=== PATIENT | male | born 1960 | race Caucasian/White ===

== ENCOUNTER 2016-11-23 07:46 | Day surgery (SDC) | payer OTHER ==
[2016-11-21 12:29] VITALS: BMI 39.5
[2016-11-23] MEDS ORDERED: ROPIVACAINE HCL 0.5% 30ML VIAL ONE (08:46)
[2016-11-23] MEDS ORDERED: MIDAZOLAM HCL 2 MG/2 ML SINGLE DOSE VIAL ONE (08:46)
[2016-11-23] MEDS ORDERED: DEXAMETHASONE SOD PHOSPHATE/PF 10 MG/ML SDV ONE (08:46)
[2016-11-23] MEDS ORDERED: BUPIVACAINE HCL/EPINEPHRINE/PF 30 ML VIAL IJ ONE (09:01)
[2016-11-23] MEDS ORDERED: PROPOFOL 20 ML ONE ×2 (09:09)
[2016-11-23] MEDS ORDERED: ceFAZolin SODIUM 1 GM VIAL ONE (09:20)
[2016-11-23] MEDS ORDERED: KETOROLAC TROMETHAMINE 30 MG/1 ML VIAL ONE ×2 (09:44→09:56)
[2016-11-23] MEDS ORDERED: ONDANSETRON 4 MG/2 ML VIAL ONE (09:44)
[2016-11-23] MEDS ORDERED: LIDOCAINE HCL/PF 2% SDV 5ML VIAL ONE (10:05)
[2016-11-23] MEDS ORDERED: oxyCODONE HCL 5 MG TABLET PO PRN (10:09)
[2016-11-23] MEDS ORDERED: oxyCODONE HCL 10 MG SUSTAINED ACTING TABLET PO ONE (10:09)
--- NOTE | 2016-11-23 10:12 | DS ---
Physical Examination Vital Signs: Vital Signs Temperature 98.8 F 11/23/16 08:15 Pulse Rate 75 11/23/16 08:15 Respiratory Rate 18 11/23/16 08:15 Blood Pressure 139/81 11/23/16 08:15 O2 Sat by Pulse Oximetry (%) 97 11/23/16 08:15 Discharge Summary Reason For Visit: PARTIAL THICKNESS ROTATOR CUFF TEAR LEFT SHOULDER Condition: Good - Instructions Diet, Activity, Other Instructions: Post Operative Instructions: Shoulder Arthroscopy Dr Ad Wilhelm 1. Pain following a Shoulder Arthroscopy is variable and can be significant. Some patients will have more pain than others. You have been provided with a prescription for medication that contains a narcotic. You are not allowed to drive while on this medication. You should NOT take Tylenol (Acetaminophen) when taking the pain medication ( it will result in an overdose). Feel free to take medications such as Ibuprofen or Naprosyn in addition to the pain medicine if you do not have any problems with the NSAID class of medications. 2. Apply ice to the shoulder for 15 minutes every hour. You may continue this for as many days as necessary. 3. You may find sleeping on an incline (reclining chair) to be more comfortable for the first few days. 4. You may remove your sling when the arm is comfortable. 5. You may use the arm as tolerated. 6. You may remove the bandages in 48 hours. You may shower at that point. 7. Place band-aids on the sutures after your shower.Do not put any creams or lotions on the incision until after the sutures are removed. 8. Please call the office to schedule a visit to have your sutures removed. 9. If for any reason you believe you may have an infection or are concerned, please feel free to call me. I can be reached through our office number 24 hours a day. 10. Please call our office with any questions; we will review the surgical findings during your post-operative visit. Disposition: HOME - Home Medications Comprehensive Discharge Medication List: Ambulatory Orders Amlodipine Besylate 5 mg PO DAILY 03/28/16 Aspirin [Guy Chewable Aspirin] 81 mg PO DAILY #0 03/28/16 Furosemide [Lasix -] 10 mg PO DAILY PRN 03/28/16 Ibuprofen [Motrin -] 800 mg PO BID 03/28/16 [place]-3 Fatty Acids/Fish Oil [Fish Oil 1,000 mg Softgel] 1 each PO DAILY Oxymorphone HCl [Opana ER] 30 mg PO DAILY 03/28/16 Prednisone 5 mg PO DAILY 03/28/16 Wheat Dextrin [Benefiber] 144 gm PO DAILY #0 powder 03/28/16 Colchicine [Colcrys] 0.6 mg PO DAILY 11/21/16 Metformin HCl 500 mg PO DAILY 11/21/16
--- NOTE | 2016-11-23 10:12 | OP ---
Operative Note - Note: Operative Date: 11/23/16 Pre-Operative Diagnosis: LEft shoulder OA, synovitis, partial cuff tear, labral tear Operation: LSA, synovectomy, debridement, decompression Surgeon: Ad Wilhelm Anesthesiologist/SOLAR ENERGY CONSULTANT AND DESIGNER: Bryan Donohue Anesthesia: General Operative Report Dictated: Yes
--- NOTE | 2016-11-23 10:17 | SURG ---
Surgery Toaster Operator Note Toaster Operator: Jorden Pollack PA-C Date of Service: 11/23/16 Diagnosis: Left shoulder osteoarthritis, synovitis, partial cuff tear, labral tear Procedure: Left shoulder arthroscopy, synovectomy, debridement, decompression I was present for the entirety of the operative procedure. For further detail, please refer to operative report. Visit type - Case Type Case Type: Scheduled Admission - New patient This patient is new to me today: Yes Date on this admission: 11/23/16
[2016-11-23] MEDS ORDERED: LACTATED RINGERS SOLUTION 1,000 ML IV SCH (10:45)
[2016-11-23] MEDS ORDERED: oxyCODONE HCL 5 MG TABLET ONE (11:07)
[2016-11-23] MEDS ORDERED: oxyCODONE HCL 10 MG SUSTAINED ACTING TABLET ONE (11:20)
[2016-11-23 11:28] VITALS: TEMP 98.2
[2016-11-23] MEDS ORDERED: ONDANSETRON 4 MG/2 ML VIAL IVPUSH PRN (11:28)
[2016-11-23 12:15] VITALS: BP 116/76; PULSE 80
--- NOTE | 2016-11-27 13:18 | PATH ---
Surgical Pathology Report Patient Name: FATOU SETIN Med. Rec. #: [id number] /Age/Gender: 1960 (Age: 56) / M Account: [id number] Location: [facility] AMBULATORY Taken: 11/23/2016 Received: 11/23/2016 Reported: 11/27/2016 Physicians: Ad Wilhelm M.D. Specimen(s) Received LEFT SHOULDER SHAVINGS Clinical History Partial-thickness rotator cuff tear left shoulder Final Diagnosis LEFT SHOULDER, ARTHROSCOPIC SHAVINGS: PORTIONS OF FIBROCARTILAGE WITH MYXOID DEGENERATIVE CHANGES, SYNOVIUM, AND HYALINE CARTILAGE. CALCIFIED MATERIAL MORPHOLOGICALLY CONSISTENT WITH PSEUDOGOUT (CPPD) IDENTIFIED. Electronically Signed Evans Leslie M.D. Gross Description Received in formalin, labeled "left shoulder shavings," is a 3.5 x 3.0 x 0.3 cm. aggregate of dorsey-yellow soft tissue fragments. A roofing sales representative portion is submitted in one cassette. 11/26/201611/26/2016
== END 2016-11-23 12:15 | disposition home or self-care (01) ==
LOC: FASU 07:46
PROVIDERS: ATTEND Orthopaedic Surgery
PROC: 0RNK4ZZ Release Left Shoulder Joint, Percutaneous Endoscopic Approach (ICD-10-PCS; 2016-11-23)
PROC: 0RBK4ZZ Excision of Left Shoulder Joint, Percutaneous Endoscopic Approach (ICD-10-PCS; 2016-11-23)
PROC: 0LB24ZZ Excision of Left Shoulder Tendon, Percutaneous Endoscopic Approach (ICD-10-PCS; principal; 2016-11-23 09:37)
DX: M75.112 Incomplete rotator cuff tear or rupture of left shoulder, not specified as traumatic (principal); M75.52 Bursitis of left shoulder; M19.012 Primary osteoarthritis, left shoulder; M65.812 Other synovitis and tenosynovitis, left shoulder; M75.92 Shoulder lesion, unspecified, left shoulder
CPT/HCPCS: 88304-TC; 94760

== ENCOUNTER 2017-12-17 09:54 | Emergency (ER) | payer OTHER ==
[2017-12-17 10:04] VITALS: BP 151/97; PULSE 82; TEMP 98.3; BMI 32.3
--- NOTE | 2017-12-17 10:17 | PDOC ---
History of Present Illness - General Chief Complaint: Injury Stated Complaint: FALL, BACK, CEHST, RT HIP, STANLEY WRISTS Time Seen by Provider: 12/17/17 10:13 History Source: Patient (Patient walked in complaining of a fall while getting through a door at a gas station ) Past History - Past Medical History Allergies/Adverse Reactions: Allergies Allergy/AdvReac Type Severity Reaction Status Date / Time No Known Allergies Allergy Verified 12/17/17 09:55 Home Medications: Ambulatory Orders Amlodipine Besylate 5 mg PO DAILY 03/28/16 Furosemide [Lasix -] 10 mg PO DAILY PRN 03/28/16 [place]-3 Fatty Acids/Fish Oil [Fish Oil 1,000 mg Softgel] 1 each PO DAILY Prednisone 5 mg PO DAILY 03/28/16 Wheat Dextrin [Benefiber] 144 gm PO DAILY #0 powder 03/28/16 Albuterol Sulfate Inhaler - [Ventolin Hfa Inhaler -] 2 inh PO Q4H 10/04/17 Fluticasone Propionate [Flovent Hfa] 110 mcg IH BID 10/04/17 Gabapentin 800 mg PO TID 10/04/17 Multivitamin [Multiple Vitamins] 1 each PO DAILY 10/04/17 Tizanidine HCl 2 mg PO TID 10/04/17 Oxycodone HCl 10 mg PO TID PRN 12/17/17 Anemia: No Asthma: Yes Cancer: No Cardiac Disorders: No CVA: No COPD: No CHF: No Dementia: No Diabetes: No GI Disorders: No Disorders: No HTN: Yes Hypercholesterolemia: No Liver Disease: No Seizures: No Thyroid Disease: No Other medical history: ARTHRITIS, GOUT - Surgical History Abdominal Surgery: Yes (GASTRIC SLEEVE) Appendectomy: Yes Cardiac Surgery: No Cholecystectomy: No Lung Surgery: No Neurologic Surgery: No Orthopedic Surgery: Yes (RT ANKLE ORIF AND REMOVED 1998, left rotator cuff repair 11/30) - Suicide/Smoking/Psychosocial Hx Smoking History: Former smoker Have you smoked in the past 12 months: No If you are a former smoker, when did you quit?: 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 Information on smoking cessation initiated: No Hx Alcohol Use: No Drug/Substance Use Hx: No Substance Use Type: None Hx Substance Use Treatment: No *Physical Exam - Vital Signs Last Vital Signs Temp Pulse Resp BP Pulse Ox 98.3 F 82 18 151/97 96 12/17/17 09:55 12/17/17 09:55 12/17/17 09:55 12/17/17 09:55 12/17/17 09:55 *DC/Admit/Observation/Transfer Diagnosis at time of Disposition: Wrist contusion Qualifiers: Encounter type: initial encounter Laterality: right Qualified Code(s): S60.211A - Contusion of right wrist, initial encounter Shoulder injury Qualifiers: Encounter type: initial encounter Laterality: left Qualified Code(s): S49.92XA - Unspecified injury of left shoulder and upper arm, initial encounter - Discharge Dispostion Condition at time of disposition: Stable Admit: No - Referrals Referrals: Claudia Milligan MD [Primary Care Provider] - - Patient Instructions Printed Discharge Instructions: How to Use a Sling - Post Discharge Activity
[2017-12-17] MEDS ORDERED: ACETAMINOPHEN 500 MG TABLET (FP) PO ONE (11:05)
[2017-12-17] MEDS ORDERED: ACETAMINOPHEN 500 MG TABLET (FP) ONE (11:06)
== END 2017-12-17 12:02 | disposition home or self-care (01) ==
LOC: FER 09:54
DX: S60.211A Contusion of right wrist, initial encounter (principal); S49.92XA Unspecified injury of left shoulder and upper arm, initial encounter; W18.39XA Other fall on same level, initial encounter; Y93.89 Activity, other specified; Y92.9 Unspecified place or not applicable; J45.909 Unspecified asthma, uncomplicated; Z98.84 Bariatric surgery status
CPT/HCPCS: 72100-TC-FY; 73030-TC-LT-FY; 73110-TC-RT-FY; 99283-25

== ENCOUNTER 2018-02-13 08:33 | Emergency (ER) | payer OTHER ==
[2018-02-13 08:42] VITALS: TEMP 97.6; BMI 32.3
--- NOTE | 2018-02-13 09:03 | PDOC ---
History of Present Illness - General Chief Complaint: Overdose Stated Complaint: LIGHTHEADED, RX PROBLEM (PCP SENT) Time Seen by Provider: 02/13/18 09:03 History Source: Patient Exam Limitations: No Limitations - History of Present Illness Initial Comments: 02/13/18 09:15 Pt is a 57 yo with PMHx of HTN, Rh Arthritis and osteoarthritis with previous shoulder surgery, presenting following overdose of lasix this am. Pt was referred by his PCP- Dr Milligan, because he took 10tablets of 20mg lasix accidentally today at 5 am instead of his prednisone tablets for Rh Arthritis. He said he was woken up by his dog this am and felt cramping of his fingers, without turning on the lights or wearing his reading glasses, he mistakenly took 10tablets of the lasix. He takes 5mg prednisone for Rh Arthritis, but was doubling up on a missed dose yesterday, so attempted to take 10mg, before realizing it was the lasix he took. He brought in both medications to the ED today. Pt has passed urine up to 25 times this am, non bloody, no dysuria. Since he came into the ED, he has had cramping of his chest with palpitations, dizziness and blurry vision, but no shortness of breath and no syncope. Patient still took the prednisone 10tablets( 10mg), but skipped his amlodipine (5mg) and the precocet this am. He had a bagel and coffee this am, and has had no nausea or vomiting. Pt has no CAD or CHF but takes the lasix as needed for edema following his prednisone dose. 02/13/18 13:01 Timing/Duration: 4-6 hours Severity: moderate Associated Symptoms: denies: chest pain, cough, diaphoresis, fever/chills, headaches, nausea/vomiting, syncope Past History - Past Medical History Allergies/Adverse Reactions: Allergies Allergy/AdvReac Type Severity Reaction Status Date / Time No Known Allergies Allergy Verified 02/13/18 08:37 Home Medications: Ambulatory Orders Amlodipine Besylate 5 mg PO DAILY 03/28/16 Furosemide [Lasix -] 10 mg PO DAILY PRN 03/28/16 [place]-3 Fatty Acids/Fish Oil [Fish Oil 1,000 mg Softgel] 1 each PO DAILY Prednisone 5 mg PO DAILY 03/28/16 Albuterol Sulfate Inhaler - [Ventolin Hfa Inhaler -] 2 inh PO PRN 10/04/17 Fluticasone Propionate [Flovent Hfa] 110 mcg IH PRN 10/04/17 Gabapentin 800 mg PO QID 10/04/17 Multivitamin [Multiple Vitamins] 1 each PO DAILY 10/04/17 Tizanidine HCl 2 mg PO TID 10/04/17 Oxycodone HCl 10 mg PO TID PRN 12/17/17 Anemia: No Asthma: Yes Cancer: No Cardiac Disorders: No CVA: No COPD: No CHF: No DVT: No Dementia: No Diabetes: No GI Disorders: No Disorders: No HTN: Yes Hypercholesterolemia: No Liver Disease: No Seizures: No Thyroid Disease: No Other medical history: RA, OA - Surgical History Abdominal Surgery: Yes (GASTRIC SLEEVE) Appendectomy: Yes Cardiac Surgery: No Cholecystectomy: No Lung Surgery: No Neurologic Surgery: No Orthopedic Surgery: Yes (RT ANKLE ORIF AND REMOVED 1998, left rotator cuff repair 11/30) - Suicide/Smoking/Psychosocial Hx Smoking History: Former smoker Have you smoked in the past 12 months: No If you are a former smoker, when did you quit?: 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 Information on smoking cessation initiated: No Hx Alcohol Use: No Drug/Substance Use Hx: No Substance Use Type: None Hx Substance Use Treatment: No Review of Systems - Review of Systems Able to Perform ROS?: Yes Is the patient limited Lithuanian proficient: No Constitutional: No: Chills, Diaphoresis, Fever HEENTM: Yes: Blurred Vision. No: Nose Congestion, Throat Pain Respiratory: No: Cough, Orthopnea, Shortness of Breath, SOB at Rest, Stridor, Wheezing Cardiac (ROS): Yes: Lightheadedness, Other (cramping generalized chest pain). No: Chest Pain ABD/GI: No: Abdominal Distended, Constipated, Difficulty Swallowing, Vomiting : Yes: Frequency (since taking the lasix this am). No: Burning, Dysuria, Incontinence Musculoskeletal: Yes: Joint Pain (bilateral digits) Neurological: No: Headache, Numbness, Paresthesia, Seizure, Tingling, Tremors *Physical Exam - Vital Signs Last Vital Signs Temp Pulse Resp BP Pulse Ox 97.6 F 68 18 157/86 100 02/13/18 08:40 02/13/18 08:40 02/13/18 08:40 02/13/18 08:40 02/13/18 08:40 - Physical Exam General Appearance: Yes: Appropriately Dressed HEENT: positive: EOMI, ABIDA. negative: Scleral Icterus (L) Neck: positive: Supple. negative: Tender Respiratory/Chest: positive: Lungs Clear, Normal Breath Sounds. negative: Respiratory Distress Cardiovascular: positive: Regular Rhythm, Regular Rate, S1, S2 Gastrointestinal/Abdominal: positive: Normal Bowel Sounds, Soft. negative: Tender Musculoskeletal: negative: CVA Tenderness Extremity: positive: Normal Inspection, Normal Range of Motion. negative: Tender, Coldness, Cyanosis, Pedal Edema Integumentary: positive: Dry, Warm Neurologic: positive: Fully Oriented, Alert, Motor Strength 5/5. negative: Facial Droop, Numbness, Confused, Disoriented Heart Score/ECG Review - ECG Impressions Comment:: 02/13/18 10:32 Normal sinus rhythm Ventricular rate-63bpm QT/QTc- 402/411 ED Treatment Course - LABORATORY CBC & Chemistry Diagram: 02/13/18 09:25 02/13/18 09:25 Medical Decision Making - Medical Decision Making 02/13/18 09:32 CBC, CMP, Mg, Phosphorus, EKG, lactated ringers 02/13/18 11:02 CBC,CMP wnl EKG- normal Pat, the nurse spoke with poison control and they said to monitor for 6 hours. Plan is to discuss his case with Dr Milligan 02/13/18 12:10 Pending call back from Dr Milligan. Pt was signed out to Dr Oconnor *DC/Admit/Observation/Transfer Diagnosis at time of Disposition: Overdose Qualifiers: Injury intent: accidental or unintentional - Discharge Dispostion Disposition: HOME Condition at time of disposition: Improved Admit: No - Referrals Referrals: Claudia Milligan MD [Primary Care Provider] - 1 week - Patient Instructions Printed Discharge Instructions: DI for Drug Overdose in Adults Additional Instructions: You were seen here for accidentally ingesting 200mg of lasix this morning We checked your blood and did an EKG and everything looked normal We gave you fluids to rehydrate you We observed you up to six hours since the ingestion occurred, as recommended by Poison control and you seem to be stable Please follow up with your primary doctor within 2-3 days Return to the emergency department if you have any new, worsening, or concerning symptoms - Post Discharge Activity - Attestations Physician Attestion: 02/13/18 11:09 Briana Ariza MD
[2018-02-13] MEDS ORDERED: LACTATED RINGERS SOLUTION 1000 ML INFUS.BAG IV ONE ×2 (09:15→09:44)
[2018-02-13 09:32] LABS: BASO % 0.6 % (0-2.0); EOS % 0.4 % (0-4.5); HEMATOCRIT 41.7 % (35.4-49); HEMOGLOBIN 14.4 GM/dL (11.7-16.9); LYMPH % 10.9 % (8-40); MCH 30.1 pg (25.7-33.7); MCHC 34.5 g/dl (32.0-35.9); MEAN CELL VOLUME 87.2 fl (80-96); MEAN PLT VOLUME 8.8 fl (7.5-11.1); MONO % 5.7 % (3.8-10.2); NEUT % 82.4 % (42.8-82.8); PLATELET COUNT 276 K/MM3 (134-434); RBC 4.78 M/mm3 (4.00-5.60); RDW 14.6 % (11.9-15.9); WHITE BLOOD COUNT 9.4 K/mm3 (4.0-10.0)
[2018-02-13 10:00] LABS: ALBUMIN 4.5 g/dl (3.4-5.0); ANION GAP 6 (8-16); BLOOD UREA NITROGEN 20 mg/dL (7-18); CALCIUM 9.4 mg/dL (8.5-10.1); CHLORIDE 101 mmol/L (98-107); CO2 30 mmol/L (21-32); GLUCOSE,RANDOM 118 mg/dL (74-106); POTASSIUM 3.9 mmol/L (3.5-5.1); SODIUM 137 mmol/L (136-145)
[2018-02-13 10:05] LABS: ALK PHOS 78 U/L (45-117); BILIRUBIN,TOTAL 0.6 mg/dL (0.2-1.0); CREATININE 0.9 mg/dL (0.7-1.3); SGOT/AST 21 U/L (15-37); SGPT/ALT 40 U/L (12-78); TOT PROT 8.1 g/dl (6.4-8.2)
[2018-02-13 10:25] LABS: ARTERIAL BLD GAS O2 SATURATION 96.6 % (90-98.9); ARTERIAL BLOOD GAS BASE EXCESS 5.7 meq/l (-2-2); ARTERIAL BLOOD GAS PCO2 38.1 mmHg (35-45); ARTERIAL BLOOD GAS PO2 73.6 mmHg (80-100); ARTERIAL BLOOD GAS pH 7.49 (7.35-7.45)
[2018-02-13 10:26] LABS: ALLENS TEST POSITIVE
[2018-02-13 10:34] LABS: MAGNESIUM 2.2 mg/dL (1.8-2.4); PHOSPHOROUS 3.2 mg/dL (2.5-4.9)
--- NOTE | 2018-02-13 11:10 | PDOC ---
Attending Attestation - [facility] HPI: 02/13/18 11:14 The patient is 57 a year old male, with a significant past medical history of asthma, hypertension, rheumatoid arthritis and osteoarthritis, who presents to the emergency department s/p accidentally taking Lasix 200 mg this morning. He reports missing his dose of prednisone 5mg yesterday and tried to catch up today by taking 10mg. Since his pills come in 1mg aliquots, he took 10 pills of what he thought was prednisone but was actually 20mg lasix pills. He reports that it was dark and he did not have his glasses on and therefore, accidentally took Lasix instead of Prednisone since the pills look the similar. He currently notes finger cramping. The patient reports urinating up to 25 times since he initially took the medication. Currently in the ED, the patient reports dizziness, cramping, palpitations and blurry vision. The patient denies fever, chills, headache, nausea, vomiting, diarrhea, constipation, dysuria or hematuria. Allergies: None reported. Past Surgical History: Gastric sleeve; Orthopedic surgeries (Right ankle, left shoulder). Social History: Former smoker. Denies alcohol or drug use. PCP: Dr. Milligan - Physicial Exam PE: 02/13/18 11:15 GENERAL: Awake, alert, and fully oriented, in no acute distress. HEAD: No signs of trauma. EYES: PERRLA, EOMI, sclera anicteric, conjunctiva clear. ENT: Auricles normal inspection, hearing grossly normal, nares patent, oropharynx clear without exudates. Moist mucosa. NECK: Normal ROM, supple, no lymphadenopathy, JVD, or masses. LUNGS: Breath sounds equal, clear to auscultation bilaterally. No wheezes, and no crackles. HEART: Regular rate and rhythm, normal S1 and S2, no murmurs, rubs or gallops. ABDOMEN: Soft, nontender, normoactive bowel sounds. No guarding, no rebound. No masses. EXTREMITIES: Normal range of motion, no edema. No clubbing or cyanosis. No cords , erythema, or tenderness. BACK: No midline spinal tenderness in cervical/thoracic/lumbar region. NEUROLOGICAL: Normal speech, cranial nerves intact, negative pronator drift, 5/ 5 strength in all 4 extremities, normal sensation to light touch in all 4 extremities, normal cerebellar exam, normal gait, normal reflexes and tone. SKIN: Warm, dry, normal turgor, no rashes or lesions noted. - Medical Decision Making 02/13/18 11:16 Documentation prepared by Yessica Garibay, acting as medical reception for Deny Gaitan MD. <Yessica Garibay - Last Filed: 02/13/18 11:16> - Resident Resident Name: Briana Ariza I - ED Attending Attestation I have performed the following: I have examined & evaluated the patient, The case was reviewed & discussed with the resident, I agree w/resident's findings & plan, Exceptions are as noted - Medical Decision Making 02/13/18 11:09 57yo M presents with accidental overdose of lasix - approx 200mg at 5am. Vitals wnl for now, labs wnl. Pt getting 2L lactated ringers at this time. Case discussed with poison control who recommends 6hr obs since ingestion. Will discuss with Dr. Milligan. 02/13/18 12:[address] Milligan. Pt continues to feel well and requests DC. Advised to hydrate and given return precautions. I discussed the physical exam findings, ancillary test results and final diagnoses with the patient. I answered all of the patient's questions. The patient was satisfied with the care received and felt comfortable with the discharge plan and treatment plan. The patient will call their primary care physician within 24 hours to arrange follow-up and will return to the Emergency Department with any new, persistent or worsening symptoms. <Deny Gaitan - Last Filed: 02/13/18 12:32> Discharge Disposition <Yessica Garibay - Last Filed: 02/13/18 11:16> - Discharge Dispostion Last Admission D/C Date: 10/11/06 Admit: No <Deny Gaitan - Last Filed: 02/13/18 12:32> - Diagnosis Overdose Qualifiers: Injury intent: accidental or unintentional - Discharge Dispostion Disposition: HOME Condition at time of disposition: Improved - Referrals Referrals: Claudia Milligan MD [Primary Care Provider] - 1 week - Patient Instructions Printed Discharge Instructions: DI for Drug Overdose in Adults Additional Instructions: You were seen here for accidentally ingesting 200mg of lasix this morning We checked your blood and did an EKG and everything looked normal We gave you fluids to rehydrate you We observed you up to six hours since the ingestion occurred, as recommended by Poison control and you seem to be stable Please follow up with your primary doctor within 2-3 days Return to the emergency department if you have any new, worsening, or concerning symptoms - Post Discharge Activity
[2018-02-13 12:37] VITALS: BP 127/88; PULSE 59
--- NOTE | 2018-02-13 13:01 | EKG ---
Test Reason : Blood Pressure : / mmHG Vent. Rate : 063 BPM Atrial Rate : 063 BPM P-R Int : 116 ms QRS Dur : 090 ms QT Int : 402 ms P-R-T Axes : 024 029 021 degrees QTc Int : 411 ms NORMAL SINUS RHYTHM NORMAL ECG WHEN COMPARED WITH ECG OF 01-MAY-2009 11:05, NO SIGNIFICANT CHANGE WAS FOUND Confirmed by JOSELO NINA MD ([id number]) on 02/13/2018 1:01:02 PM Referred By: Confirmed By:JOSELO NINA MD
== END 2018-02-13 12:38 | disposition home or self-care (01) ==
LOC: JER 08:33
PROC: 3E0337Z Introduction of Electrolytic and Water Balance Substance into Peripheral Vein, Percutaneous Approach (ICD-10-PCS; principal; 2018-02-13)
DX: Z98.84 Bariatric surgery status (principal); J45.909 Unspecified asthma, uncomplicated; I10 Essential (primary) hypertension
CPT/HCPCS: 36415; 36600; 80053; 82803; 83735; 84100; 85025; 93005; 93010; 99285-25